=== PATIENT | female | born 1955 | race Two or more races ===

== ENCOUNTER 2025-01-10 15:11 | Inpatient (IN) | payer MEDICARE, OTHER ==
[~2025-01-10] VITALS: Ht 147.3 cm; Wt 55.3 kg
[2025-01-10] VITALS (7 sets, daily range): BP systolic 100–119; BP diastolic 66–82; TEMP 98.4; O2SAT 94–98
[2025-01-10 17:58] LABS: PLATELET COUNT (AUTO) 189 K/uL (150-450); RED BLOOD CELL COUNT(AUTO) 3.57 MIL/uL (4.0-5.2); RED CELL DISTRIBUTION WIDTH 17.1 % (11.5-15.0); WHITE BLOOD COUNT (AUTO) 11.1 K/uL (4.3-11.0)
[2025-01-10] MEDS ORDERED: DOSING PER PHARMACY-CEFEPIME IVPB XX PRN (18:00)
[2025-01-10] MEDS: BLOOD SUGAR DIAGNOSTIC 1 EACH STRIP VI SCH (18:00)
[2025-01-10] MEDS ORDERED: DOSING PER PHARMACY-VANCOMYCIN IV XX PRN (18:00)
[2025-01-10] MEDS ORDERED: ONDANSETRON HCL/PF 4 MG/2 ML VIAL IVP PRN (18:00)
[2025-01-10] MEDS ORDERED: MORPHINE SULFATE INJ 2 MG/ML DISP.SYRIN IV PRN (18:00)
[2025-01-10] MEDS ORDERED: DEXTROSE 50%-WATER 50 ML DISP.SYRIN IV PRN (18:00)
[2025-01-10 18:16] LABS: ASPARTATE AMINOTRANSFERASE 22 U/L (15-37); CALCIUM, SERUM 7.7 mg/dL (8.5-10.1); CREATININE 4.0 mg/dL (0.6-1.3); SODIUM SERUM 133 mmol/L (136-145); TOTAL PROTEIN, SERUM 6.1 g/dL (6.4-8.2); UREA NITROGEN, BLOOD 25 mg/dL (7-18)
[2025-01-10] MEDS: BLOOD SUGAR DIAGNOSTIC 1 EACH STRIP IN ONE (18:32)
[2025-01-10] MEDS ORDERED: METO25TA4 PO (19:33)
[2025-01-10] MEDS ORDERED: GABA-532 PO (19:33)
[2025-01-10] MEDS ORDERED: DICL100G34 TP (19:33)
[2025-01-10] MEDS ORDERED: ATOR20TA PO (19:33)
[2025-01-10] MEDS ORDERED: ASPI-1169 PO (19:33)
[2025-01-10] MEDS ORDERED: SEVE800T8 PO (19:33)
[2025-01-10 19:40] LABS: APPEARANCE,URINE CLOUDY (CLEAR); BLOOD, URINE 2+ Ery/uL (NEGATIVE); LEUKOCYTE ESTERASE ,URINE 1+ (NEGATIVE); NITRITE, URINE NEGATIVE (NEGATIVE); UGLUCOSE TRACE mg/dL (NEGATIVE)
[2025-01-10 19:49] LABS: ADD URINE CULTURE YES; COARSE GRANULAR CASTS,URINE Few /LPF (None Seen)
[2025-01-10] MEDS: VANCOMYCIN 1 GM /D5W 250 ML PB IV ONE (20:29)
[2025-01-10] MEDS: VANCOMYCIN 1 GM in IV NS 0.9% 250 ML IV ONE (20:30)
[2025-01-10] MEDS: IV NS 0.9% 250 ML IV PRN (20:30)
[2025-01-10] MEDS: HEPARIN SODIUM, PORCINE 5000 UNITS/1 ML VIAL SQ SCH (20:46)
[2025-01-10] MEDS ORDERED: CEFEPIME 1 GM VIAL ONE (20:53)
[2025-01-10] MEDS: FUROSEMIDE 40 MG/4 ML VIAL IV ONE (21:55)
[2025-01-10] MEDS: CEFEPIME 1 GM in IV NS 0.9% 50 ML IV ONE (21:55)
[2025-01-11] VITALS (16 sets, daily range): BP systolic 90–124; BP diastolic 59–89; TEMP 97–98.1; O2SAT 95–99
[2025-01-11 05:04] LABS: PLATELET COUNT (AUTO) 176 K/uL (150-450); RED BLOOD CELL COUNT(AUTO) 3.48 MIL/uL (4.0-5.2); RED CELL DISTRIBUTION WIDTH 17.1 % (11.5-15.0); WHITE BLOOD COUNT (AUTO) 11.6 K/uL (4.3-11.0)
[2025-01-11 05:20] LABS: ASPARTATE AMINOTRANSFERASE 18 U/L (15-37); CALCIUM, SERUM 7.8 mg/dL (8.5-10.1); CREATININE 4.5 mg/dL (0.6-1.3); PHOSPHORUS 3.6 mg/dL (2.5-4.9); SODIUM SERUM 132 mmol/L (136-145); TOTAL PROTEIN, SERUM 5.9 g/dL (6.4-8.2); UREA NITROGEN, BLOOD 28 mg/dL (7-18)
[2025-01-11] MEDS: *INSULIN REGULAR(HUMULIN R)HUM 100 UNIT/ML VIAL SQ PRN (16:42)
[2025-01-11] MEDS: CEFEPIME 1 GM in IV D5W 50 ML IV SCH (21:42)
[2025-01-12] VITALS: BP 98/71; TEMP 97.7; O2SAT 97
[2025-01-12 04:00] VITALS: BP 98/71; TEMP 97.7; O2SAT 96
[2025-01-12] MEDS: INSULIN REGULAR, HUMAN 100 UNIT/ML 3 ML VIAL SQ PRN (06:45)
[2025-01-12 09:55] VITALS: BP 107/64; TEMP 98.2; O2SAT 96
[2025-01-12 10:28] LABS: PLATELET COUNT (AUTO) 145 K/uL (150-450); RED BLOOD CELL COUNT(AUTO) 3.53 MIL/uL (4.0-5.2); RED CELL DISTRIBUTION WIDTH 18.0 % (11.5-15.0); WHITE BLOOD COUNT (AUTO) 9.7 K/uL (4.3-11.0)
[2025-01-12 10:37] LABS: CALCIUM, SERUM 8.1 mg/dL (8.5-10.1); CREATININE 4.0 mg/dL (0.6-1.3); SODIUM SERUM 136.0 mmol/L (136-145); UREA NITROGEN, BLOOD 23.0 mg/dL (7-18)
[2025-01-12 10:43] LABS: ASPARTATE AMINOTRANSFERASE 18.0 U/L (15-37); TOTAL PROTEIN, SERUM 6.4 g/dL (6.4-8.2)
[2025-01-12] MEDS: POTASSIUM CHLORIDE 20 MEQ TAB.PRT.SR PO ONE (12:23)
[2025-01-12 16:00] VITALS: BP 108/73; TEMP 98.2; O2SAT 100
[2025-01-12 20:00] VITALS: BP 100/67; TEMP 98.4; O2SAT 98
[2025-01-12] MEDS: ACETAMINOPHEN 325 MG TABLET PO PRN (20:38)
[2025-01-13] VITALS (7 sets, daily range): BP systolic 96–117; BP diastolic 58–75; TEMP 98.1–98.8; O2SAT 92–97
[2025-01-13] MEDS: VANCOMYCIN POST DIALYSIS 500MG IV PRN (01:05)
[2025-01-13 04:06] LABS: HEPATITIS B SURFACE AB (QUAL) Reactive (.)
[2025-01-13 06:31] LABS: PLATELET COUNT (AUTO) 116 K/uL (150-450); RED BLOOD CELL COUNT(AUTO) 3.54 MIL/uL (4.0-5.2); RED CELL DISTRIBUTION WIDTH 17.2 % (11.5-15.0); WHITE BLOOD COUNT (AUTO) 7.7 K/uL (4.3-11.0)
[2025-01-13 07:00] LABS: CALCIUM, SERUM 8.4 mg/dL (8.5-10.1); CREATININE 3.3 mg/dL (0.6-1.3); PHOSPHORUS 3.1 mg/dL (2.5-4.9); SODIUM SERUM 140.0 mmol/L (136-145); UREA NITROGEN, BLOOD 17.0 mg/dL (7-18)
[2025-01-13 11:07] LABS: FOLIC ACID > 20.0 ng/mL (>3.0)
[2025-01-13 14:23] LABS: ABG BASE EXCESS 1.2 mmol/L (-2.0-3.0); ABG OXYGEN SATURATION 77.7 % (94.0-98.0); ABG PCO2 39.0 mmHg (32.0-45.0); ABG PH 7.432 (7.350-7.450); ABG PO2 38.8 mmHg (83.0-108.0); ABG TOTAL HEMOGLOBIN 11.5 G/dL (12.0-16.0); FRACTIONATED INSPIRED OXYGEN 21.0 %; SITE, ABG LEFT RADIAL
[2025-01-13 15:30] LABS: RHEUMATOID FACTOR SCREEN NEGATIVE (NEGATIVE)
[2025-01-14 06:33] LABS: CALCIUM, SERUM 8.0 mg/dL (8.5-10.1); CREATININE 4.5 mg/dL (0.6-1.3); SODIUM SERUM 137.0 mmol/L (136-145); UREA NITROGEN, BLOOD 29.0 mg/dL (7-18)
[2025-01-14 08:00] VITALS: BP 112/72; TEMP 97.9; O2SAT 96
[2025-01-14] MEDS ORDERED: LEVO500T90 PO (10:06)
[2025-01-14] MEDS: SEVELAMER CARBONATE 800 MG TABLET PO SCH (10:21)
[2025-01-14] MEDS: ASPIRIN 81 MG TAB.CHEW PO SCH (10:21)
[2025-01-14] MEDS: METOPROLOL SUCCINATE 25 MG TAB.SR.24H PO SCH (10:22)
[2025-01-14] MEDS: GABAPENTIN 100 MG CAPSULE PO SCH (10:22)
[2025-01-14] MEDS: DICLOFENAC TOPICAL 100 GM TUBE TP SCH (10:49)
[2025-01-14 11:07] LABS: *ANA ANTI-CENTROMERE B AB <0.2 AI (0.0-0.9); *ANA ANTI-DNA(DS) AB, QN <1 IU/mL (0-9); *ANA ANTI-JO-1 <0.2 AI (0.0-0.9); *ANA ANTICHROMATIN ANTIBODY <0.2 AI (0.0-0.9); *ANA RNP ANTIBODIES <0.2 AI (0.0-0.9); *ANA SJOGREN'S ANTI-SS-A <0.2 AI (0.0-0.9); *ANA SJOGREN'S ANTI-SS-B <0.2 AI (0.0-0.9); *ANAANTI-SCLERODERMA-70 AB <0.2 AI (0.0-0.9); *ANASMITH AB <0.2 AI (0.0-0.9)
[2025-01-14 16:00] VITALS: BP 91/60; TEMP 98.2; O2SAT 97
[2025-01-14] MEDS ORDERED: ATORVASTATIN 10 MG TABLET PO SCH (22:00)
== END 2025-01-14 17:40 | disposition home or self-care (01) | DRG 637 ==
LOC: ICU 16:43 → MED 01-11 13:45 → TELE 01-11 16:12 → MED 01-12 15:44
PROVIDERS: ADMIT Internal Medicine; ATTEND Nurse Practitioner Acute Care
PROC: 5A1D70Z Performance of Urinary Filtration, Intermittent, Less than 6 Hours Per Day (ICD-10-PCS; principal; 2025-01-11)
DX: E11.649 Type 2 diabetes mellitus with hypoglycemia without coma (principal); G92.9 Unspecified toxic encephalopathy; N39.0 Urinary tract infection, site not specified; N18.6 End stage renal disease; Z99.2 Dependence on renal dialysis; E11.22 Type 2 diabetes mellitus with diabetic chronic kidney disease; E78.5 Hyperlipidemia, unspecified; E87.70 Fluid overload, unspecified; K52.9 Noninfective gastroenteritis and colitis, unspecified; B96.89 Other specified bacterial agents as the cause of diseases classified elsewhere; F17.200 Nicotine dependence, unspecified, uncomplicated; D64.9 Anemia, unspecified; J84.10 Pulmonary fibrosis, unspecified; Z86.19 Personal history of other infectious and parasitic diseases; E11.42 Type 2 diabetes mellitus with diabetic polyneuropathy; M89.8X9 Other specified disorders of bone, unspecified site; T78.40XA Allergy, unspecified, initial encounter; X58.XXXA Exposure to other specified factors, initial encounter
CPT/HCPCS: 36415; 70450-TC; 71045-TC; 71250-TC; 80048-TC; 80053-TC; 80202-TC; 81001; 82607-TC; 82962-TC; 83735-TC; 83921; 84100-TC; 84425; 84443-TC; 85025-TC; 86225; 86235; 86431-TC; 86706; 87040-TC; 87081-TC; 87086-TC; 87340; 90935-TC; 97110-TC; 97116-TC; 97530-TC; A4223; G0378; J0692; J1644; J1815; J1938; J3373; J7030; J7050; J7060